=== PATIENT | female | born 1980 | race Caucasian/White ===

== ENCOUNTER 2017-09-02 17:46 | Outpatient (CLI) ==
--- NOTE | 2017-09-03 07:58 | DI ---
EXAM: Right great toe three views HISTORY: Joint pain. FINDINGS: Bone and joint structures appear normal. There is no displaced fracture or joint dislocat ion seen. General bone density and soft tissues are within normal limits. IMPRESSION: Findings within normal limits.
== END 2017-09-02 17:47 | disposition home or self-care (01) ==
LOC: RAD 17:46
DX: M25.80 Other specified joint disorders, unspecified joint (principal)

== ENCOUNTER 2017-09-30 16:47 | Outpatient (CLI) ==
--- NOTE | 2017-10-01 08:15 | DI ---
EXAM: Three views of the right toes. History: Right toe pain and trauma. Comparison: Right toe radiograph 09/02/2017 Findings: No acute fracture or dislocation. Joint spaces are preserved. Small calcific or ossific density involving the first metatarsal base interspace most likely related to old trauma or vascular calcification. Impression: No acute osseous abnormality
== END 2017-09-30 16:48 | disposition home or self-care (01) ==
LOC: RAD 16:47
PROVIDERS: ATTEND Family Medicine
DX: S93.524D Sprain of metatarsophalangeal joint of right lesser toe(s), subsequent encounter (principal); M20.11 Hallux valgus (acquired), right foot; M20.21 Hallux rigidus, right foot

== ENCOUNTER 2018-08-20 16:45 | Outpatient (CLI) | END 2018-08-20 16:46 | disposition home or self-care (01) | LOC: RHC-LAB 16:45 → FCC-LAB 16:46 | PROVIDERS: ATTEND Family Medicine | DX: M79.644 Pain in right finger(s) (principal); M54.5 Low back pain; G89.29 Other chronic pain | CPT/HCPCS: 80306 ==